=== PATIENT | male | born 1940 | race Caucasian/White ===

== ENCOUNTER 2017-11-29 14:00 | Outpatient (RCR) | payer MEDICARE, OTHER, SELFPAY ==
--- NOTE | 2017-11-10 17:47 | HP.PTEVAL ---
Patient's Visit Information INDRA STONE is a 77 year old M referred to Physical Therapy by Jimmy Valenzuela with a diagnosis of LUMBAR SPRAIN. Date of Evaluation: 11/05/17 Physical Therapist: Zaria Sow - Visit Plan Frequency: 2-3x /Week Duration: 4-6 Weeks Plan: POSTURE CORRECTION/STRENGTHENING, INSTRUCTION IN APPROPRIATE BODY MECHANICS AND ACTIVITY MODIFICATIONS. DLS STARTING WITH A NEUTRAL SPINE PROGRESSING ROM TOLERATED. ADAL LE ROM, STRETCHING AND STRENGTHENING. HEP INSTRUCTION. - Subjective Subjective: Diagnosis: LUMBAR SPRAIN. Work/Leisure: RETIRED. WALKS FOR EX. Disability: NO. Present symptoms: RIGHT LOW BACK PAIN. RIGHT POST THIGH HAD A SLIGHT TUG WHEN WALKING UP TO A WEEK AGO BUT FINE SINCE HAVING MASSAGE SESSION. Present since: 2 MONTHS AGO. Pain Scale: WORST 6/10, LEAST 0/10. Currently: 0/10. Commenced as a result of: NO APPARENT REASON. Symptoms at onset: RIGHT LOW BACK. Worse: SITTING, STANDING, CAR TRANSFERS, RISING FROM SITTING, BENDING. Better: WALK. Disturbed sleep: NO. Previous history/Previous treatment: SOME CHIROPRACTIC HISTORY, MASSAGE THERAPY, NO INJECTIONS. NO PT. NO LOW BACK SURGERY. EPIDURAL ABSCESS DEVELOPED 2015 FOR NO APPARENT REASON AND RESULTED IN SEPTIC SHOCK. ICU [facility] X 10 DAYS. NO SURGERY JUST ANTIBIOTICS. ABSCESS RESOLVED. Coughing/sneezing/straining: NEGATIVE. Gait: NORMAL. Difficulty initiating urinatin: NO. Accidents: NO. Unexplained weight loss: NO. Imaging: NONE RECENT. LATEST WAS 2015. PMH: HIGH CHOLESTEROL. HYPOTHYROIDISM. PROSTATE CA 2000 TREATED WITH SURGERY. NO CHEMO OR RADIATION. Recent major surgery: RIGHT SHOULDER REPLACEMENT 2004 AND 2012. OTHER: HAS BEEN GOING TO [facility] FOR THIS EPISODE OF BACK PAIN FOR 2 MONTHS AND IT HAS NOT HELPED THEREFORE [facility] REFERRED HIM HERE TO PT. PCP IS DR. ANGELA MARAVILLA. SAW DR. MARAVILLA ABOUT 3 MONTHS AGO JUST BEFORE THIS STARTED. BLOOD TESTS DETERMINED THYROID CONDITION AND STARTED VITAMIN D. - Objective Sitting Posture: POOR. Standing Posture: POOR. Lordosis: REDUCED. Lateral shift: NO. Relevant shift: N/A. ACTIVE CORRECTION OF posture: NE. Other Observations: INDEP GAIT AND TRANSFERS. Motor deficit: ADAL LE STRENGTH 5/5 WITH MMT'ING EXCEPT HIPS GRADED 4/5. Sensory deficit: NO. ROM deficit: TIGHT ADAL HS'S AND GASTROC SOLEUS COMPLEX'S. Dural Signs: MILDLY POSITIVE LLE FOR RIGHT LBP. Lumbar mvmt loss: flex - MOD. ext - MONICA. R SG - MONICA. L SG - MONICA. Core strength: POOR. Palpation: NO ACUTE TENDERNESS. - Goals Goal 1:: DECREASE C/O LBP Goal Time Frame: 4-6 Weeks Goal 2:: IMPROVE PERSONAL CARE, LIFTING, SITTING, STANDING, TRAVEL, AND HOUSE/YARD WORK FUNCTION Goal Time Frame: 4-6 Weeks Goal 3:: INSTRUCT IN PROPHYLAXIS Goal Time Frame: 4-6 Weeks - Rehabilitation Potential Rehabilitation Potential: Good - Anticipated Interventions Patient/Client Instruction: Educate patient on: Condition, Plan of Care, Risk Factors, Benefits of Fitness Program For the Purpose of:: To improve self management Therapeutic Exercise to Include: Strength training, Body mechanics, Postural training, Flexibilty training, Dynamic Lumbar Stabilization For the Purpose of:: To decrease pain, To increase ROM, To improve muscle performance and motor function, To increase tolerance to activity/condition/position, To improve ability of physical actions for home/community/work/leisure Cryotherapy (ice pack, ice massage): Yes Thermo therapy (hot pack): Yes Ultrasound (thermal/non thermal): Yes For the Purpose of:: To decrease pain, To improve nutrient delivery to tissue Thank you for the opportunity to evaluate your patient. For Medicare and Medicare HMO plans, please review the plan of care and approve it. It will need to be FAXED BACK to us at [phone] for Medicare purposes. Please let me know if there are questions or concerns regarding this plan of care. Physician Signature: Date:
--- NOTE | 2017-11-29 14:52 | HP.PTDCSUM_ITS ---
HP - PT D/C Summary It has been my pleasure to treat INDRA STONE under orders from Jimmy Valenzuela, for the diagnosis of LUMBAR SPRAIN for a total of 10 visit(s). Discharge Date: 11/29/17 Please see the following information for a summary of their discharge status. - Subjective Subjective: PATIENT REPORTS HE TRIED TO HURRY UP AND GET HIS GRASS CUT BEFORE THE RAIN STARTED SO HE HAS A LITTLE BIT OF LOW BACK PAIN. PATIENT REPORTS HE IS GETTING BETTER AND THERAPY SEEMS TO HAVE HELPED SOME. HE STATES HE IS MOVING DIFFERENT AND WITH MODIFICATIONS HE CAN CONTROL HIS PAIN MORE. HE STILL GETS PAIN IF HE SITS WRONG OR IN THE WRONG CHAIR. BENDING STILL CAUSES PAIN TOO. PATIENT REPORTS HE IS ABLE TO DO ALL THE EX'S WE HAVE GIVEN HIM WITHOUT INCREASED PAIN BUT HE IS NOT SURE THEY ARE HELPIING. PATIENT REPORTS HE HAS NOT BEEN TO HIS FAMILY DOCTOR FOR THIS YET. PATIENT REPORTS HE HAS LEARNED SOME NEW EX' - Pain RIGHT LOW BACK Pain Intensity (Out of 10): 1 - Overall Improvement % Improvement: 99 - Objective Objective/Function: LUMBAR OSWESTRY SCORE HAS NOT IMPROVED. PATIENT IS INDEP WITH AN EX PROGRAM AND LE DURAL SIGNS ARE NEGATIVE NOW BUT HIS PAIN ONLY SEEMS TO BE BETTER WITH ACTIVITY MODIFICATIONS AND HE HAS NOT BEEN ABLE TO RETURN TO HIS PRIOR LEVEL OF FUNCTION WITHOUT PAIN. RECOMMEND FOLLOW UP WITH REFERRING CHIROPRACTOR OR PCP AT THIS TIME. PATIENT IS AGREEABLE. PATIENT COMMUNICATED A GOOD UNDERSTANDING OF ALL INSTRUCTIONS GIVEN. - Goals Goal 1:: DECREASE C/O LBP Goal Progress: Not Progressing Goal 2:: IMPROVE PERSONAL CARE, LIFTING, SITTING, STANDING, TRAVEL, AND HOUSE/ YARD WORK FUNCTION Goal Progress: Not Progressing Goal 3:: INSTRUCT IN PROPHYLAXIS Goal Progress: Not Progressing - Plan Plan: D/C. PATIENT AGREEABLE. - D/C Information If there are questions or concerns regarding this patient's physical therapy, please feel free to call me at [phone]. Thank you for the referral of this patient. Sincerely, Zaria Sow
== END 2017-11-29 19:00 | disposition home or self-care (01) ==
LOC: PT 14:00
PROVIDERS: Family Provider Family Medicine; PCP Family Medicine; Visit Provider Chiropractor
DX: S33.5XXD Sprain of ligaments of lumbar spine, subsequent encounter (principal)
CPT/HCPCS: 97035; 97110; 97162; 97530